=== PATIENT | female | born 1960 | race Caucasian/White ===

== ENCOUNTER 2017-07-18 22:42 | Emergency (ER) | payer SELFPAY ==
[~2017-07-18] VITALS: Ht 152.4 cm; Wt 70.0 kg
[2017-07-18 23:36] LABS: HEMOGLOBIN 13.2 G/DL (11.9-15.5); MCH 29.6 PG (29.0-34.0); MCHC 33.8 G/DL (30.0-36.0); MCV 87.4 FL (83-99); PLATELET COUNT 237 K/uL (156-360); RBC DIS.WIDTH-CV 13.8 % (11.8-14.6); RBC DIS.WIDTH-SD 44.6 % (39-53); RED BLOOD COUNT 4.46 M/uL (3.80-5.20); WHITE BLOOD COUNT 10.8 K/uL (4.1-10.2)
[2017-07-18 23:45] LABS: ALBUMIN 4.2 g/dL (3.2-4.8)
[2017-07-18 23:46] LABS: CHLORIDE 105 mEq/L (99-109); POTASSIUM 3.9 mEq/L (3.7-5.4); SODIUM 137 mEq/L (136-147)
[2017-07-18 23:48] LABS: GLUCOSE 109 mg/dL (70-99); TOTAL PROTEIN 6.9 g/dL (6.4-8.3)
[2017-07-18 23:50] LABS: TOTAL BILIRUBIN 0.4 mg/dL (0.0-1.0)
[2017-07-18 23:51] LABS: ALKALINE PHOSPHATASE 64 IU/L (3-129)
[2017-07-18 23:52] LABS: CREATININE 0.9 mg/dL (0.6-1.3); GFR ESTIMATE (CALCULATED) > 59 mL/min/
[2017-07-18 23:53] LABS: AST (GOT) 14 IU/L (2-34); UREA NITROGEN (BUN) 15 mg/dL (9-23)
[2017-07-18 23:54] LABS: ALT (GPT) 14 IU/L (3-49)
[2017-07-18 23:55] LABS: LIPASE 27 U/L (1.0-51.0)
[2017-07-19 00:17] LABS: APPEARANCE CLOUDY ((CLEAR)); BILIRUBIN NEGATIVE; BLOOD LARGE; COLOR YELLOW ((YELLOW)); GLUCOSE (STRIP) NEGATIVE; KETONES NEGATIVE; LEUKOCYTES TRACE; NITRITE NEGATIVE; PROTEIN (STRIP) NEGATIVE; SPECIFIC GRAVITY 1.012 (1.000-1.030); UROBILINOGEN 0.2 MG/DL (0.2-1.0)
[2017-07-19 00:43] LABS: AMORPHOUS PHOSPHATE CRYSTALS 3+; BACTERIA 1+ /HPF; EPITHELIAL CELLS 2+ /HPF; MUCUS RARE /LPF; RED BLOOD CELLS 40-50 /HPF (0-5); UCUL ADDED? NO; WHITE BLOOD CELLS 0-5 /HPF (0-5)
[2017-07-19] MEDS ORDERED: PERCOCET 5/31 TABLET PO (01:17)
[2017-07-19] MEDS ORDERED: FLOMAX0.4 MG PO (01:17)
[2017-07-19] MEDS ORDERED: ZOFRAN4 MG PO (01:17)
[2017-07-19] MEDS ORDERED: KEFLEX500 MG PO (01:17)
[2017-07-19 01:42] VITALS: BP 153/88
== END 2017-07-19 01:44 | disposition home or self-care (01) ==
LOC: EME 22:42
PROVIDERS: Emergency Medicine
DX: N13.2 Hydronephrosis with renal and ureteral calculous obstruction (principal); K76.89 Other specified diseases of liver; Z87.442 Personal history of urinary calculi
CPT/HCPCS: 74176; 80053; 81003; 83690; 85027; 99281; 99285; J0696; J1885; J7030